=== PATIENT | female | born 1970 | race Caucasian/White ===

== ENCOUNTER 2017-02-17 19:09 | Emergency (ER) | payer MEDICAID ==
[~2017-02-17] VITALS: Ht 162.6 cm; Wt 44.0 kg
[~2017-02-17 19:09] MED LIST: ACET500C5 PO; CIPR500T4 PO
[2017-02-17 19:12] VITALS: Ht 162.6 cm; Wt 44.0 kg
[2017-02-17] MEDS ORDERED: SOD CHLORIDE 0.9% 1,000 ML IV STA (19:35)
--- NOTE | 2017-02-17 19:52 | ERD ---
ER Documentation Chief Complaint Date/Time DATE: 02/17/17 TIME: 19:40 Chief Complaint RLQ abd pain radaiting to back, left breast pain HPI 46-year-old female presents here in emergency department for complaints of right lower quadrant abdominal pain radiating to the back, sharp 6/10 scale, not better or worse with anything. Patient also is complaining of left upper back, pain, sharp throbbing pain 4/10 scale, not better or worse with anything. Patient denies any nipple discharge or redness. Patient denies any trauma and affected area. Patient did not take any medications for pain. Patient denies any fever or chills. Patient denies hematuria or dysuria. Patient denies any diarrhea or constipation. ROS All systems reviewed and are negative except as per history of present illness. Medications Home Meds Active Scripts Acetaminophen* (Tylophen*) 500 Mg Capsule, 1 CAP PO Q6H Y for PAIN AND OR ELEVATED TEMP, #20 CAP Prov:JABARI RAYMOND PA-C 05/30/15 Ciprofloxacin Hcl* (Ciprofloxacin Hcl*) 500 Mg Tablet, 500 MG PO BID for 10 Days , TAB Prov:CLAUDIA YOUNG PA-C 04/22/15 Allergies Allergies: Coded Allergies: No Known Allergy (Unverified , 02/17/17) PMhx/Soc Medical and Surgical Hx: pt denies Medical Hx History of Surgery: Yes (BREAST AUGMENTATION, RHINOPLASTY) Anesthesia Reaction: No Hx Neurological Disorder: No Hx Respiratory Disorders: No Hx Cardiac Disorders: No Hx Psychiatric Problems: No Hx Miscellaneous Medical Probl: No Hx Alcohol Use: No Hx Substance Use: No Hx Tobacco Use: No Smoking Status: Never smoker FmHx Family History: No coronary disease, No diabetes, No other Physical Exam Vitals Vital Signs Date Time Temp Pulse Resp B/P Pulse Ox O2 Delivery O2 Flow Rate FiO2 02/17/17 19:53 78 02/17/17 19:12 97.6 111 20 145/83 99 Physical Exam GENERAL: The patient is well developed and appropriate for usual state of health, in no apparent distress. CHEST: Clear to auscultation bilaterally. There are no rales, wheezes or rhonchi. No breast redness or deformity, no nipple discharge noted. Mild tenderness on palpation left mid chest and left upper back. HEART: Regular rate and rhythm. No murmurs, clicks, rubs or gallops. No S3 or S4. ABDOMEN: Soft, nontender and nondistended. Good bowel sounds. No rebound or guarding. No gross peritonitis. No gross organomegaly or masses. No Looney sign or McBurney point tenderness. BACK: No midline or flank tenderness. EXTREMITIES: Equal pulses bilaterally. There is no peripheral clubbing, cyanosis or edema. No focal swelling or erythema. Full range of motion. Grossly neurovascularly intact. NEURO: Alert and oriented. Cranial nerves 2-12 intact. Motor strength in all 4 extremities with 5/5 strength. Sensation grossly intact. Normal speech and gait. SKIN: There is no apparent rash or petechia. The skin is warm and dry. HEMATOLOGIC AND LYMPHATIC: There is no evidence of excessive bruising or lymphedema. No gross cervical, axillary, or inguinal lymphadenopathy. Result Diagram: 02/17/17 1950 02/17/17 1950 Results 24 hrs Laboratory Tests Test 02/17/17 19:50 White Blood Count 5.710^3/ul Red Blood Count 3.5010^6/ul Hemoglobin 11.4g/dl Hematocrit 33.1% Mean Corpuscular Volume 94.6fl Mean Corpuscular Hemoglobin 32.6pg Mean Corpuscular Hemoglobin Concent 34.4g/dl Red Cell Distribution Width 13.2% Platelet Count 71587^3/UL Mean Platelet Volume 10.6fl Neutrophils % 50.7% Lymphocytes % 38.5% Monocytes % 5.6% Eosinophils % 3.9% Basophils % 0.9% Nucleated Red Blood Cells % 0.0/100WBC Neutrophils # 2.910^3/ul Lymphocytes # 2.210^3/ul Monocytes # 0.310^3/ul Eosinophils # 0.210^3/ul Basophils # 0.110^3/ul Nucleated Red Blood Cells # 0.010^3/ul Urine Color STRAW Urine Clarity CLEAR Urine pH 6.0 Urine Specific Sargents 1.006 Urine Ketones NEGATIVEmg/dL Urine Nitrite NEGATIVEmg/dL Urine Bilirubin NEGATIVEmg/dL Urine Urobilinogen NEGATIVEmg/dL Urine Leukocyte Esterase NEGATIVELeu/ul Urine Microscopic RBC 1/HPF Urine Microscopic WBC 1/HPF Urine Hemoglobin 1+mg/dL Urine Glucose NEGATIVEmg/dL Urine Total Protein NEGATIVEmg/dl Sodium Level 142mmol/L Potassium Level 3.5mmol/L Chloride Level 100mmol/L Carbon Dioxide Level 27mmol/L Anion Gap 19 Blood Urea Nitrogen 15mg/dl Creatinine 0.82mg/dl Glucose Level 97mg/dl Calcium Level 9.3mg/dl Total Bilirubin 0.2mg/dl Direct Bilirubin 0.00mg/dl Indirect Bilirubin 0.2mg/dl Aspartate Amino Transf (AST/SGOT) 25IU/L Alanine Aminotransferase (ALT/SGPT) 31IU/L Alkaline Phosphatase 61IU/L Troponin I < 0.012ng/ml Total Protein 7.3g/dl Albumin 4.2g/dl Globulin 3.10g/dl Albumin/Globulin Ratio 1.35 Lipase 122U/L Current Medications Medications (Trade) Dose Ordered Sig/Ruth Route PRN Reason Start Time Stop Time Status Last Admin Dose Admin Sodium Chloride (NS) 1,000 ml @ 1,000 mls/hr Q1H STAT IV 02/17/17 19:35 02/17/17 20:34 DC 02/17/17 20:07 Morphine Sulfate (morphine) 4 mg ONCE STAT IV 02/17/17 21:53 02/17/17 21:54 DC 02/17/17 21:56 Ondansetron HCl (Zofran Inj) 4 mg ONCE STAT IV 02/17/17 21:53 02/17/17 21:54 DC 02/17/17 21:56 Normal saline IV bolus was given here in emergency department for rehydration, patient tolerated IV fluids. EKG was done, read by me and is normal sinus rhythm at a rate of 78, normal axis , there is no ST changes or changes in the EKG that indicates any cardiac emergencies at this time. Patient's EKG was also reviewed by Dr. Brown. Impression: no acute findings on EKG PROCEDURE: Chest x-ray CLINICAL INDICATION: Abdominal pain TECHNIQUE: Chest single view COMPARISON: None FINDINGS: The heart is normal in size. The pulmonary vessels are normal in caliber. The lungs are clear. The costophrenic angles are sharp. The visualized bony thorax is unremarkable. IMPRESSION: No acute cardiopulmonary disease. RPTAT: HH .Fredisashtyn Lombardo MD, MD Date Time Electronically viewed and signed by .Fredis Lombardo MD, MD on 02/17/2017 20:47 .W/ CC: BRAD MATIAS TRANSITION RN PROCEDURE: CT abdomen and pelvis without intravenous contrast. CLINICAL INDICATION: Right lower quadrant pain. TECHNIQUE: CT of the abdomen/pelvis was performed utilizing axial images with reconstructions in sagittal and coronal planes. The administered radiation dose is CTDI 6.8 mGy, DLP 305 mGy-cm. COMPARISON: No pertinent prior examinations were submitted for comparison. FINDINGS: Visualized Chest: The visualized lung bases are clear. Abdomen: The liver, spleen, pancreas, gallbladder,and adrenal glands are unremarkable. The kidneys are without hydronephrosis. No definite urinary calculi are seen. There is no evidence of bowel obstruction. The appendix is normal. No intra- abdominal free air is seen. There is no evidence of intra-abdominal adenopathy or free fluid. Pelvis: There is no evidence of pelvic adenopathy. The uterus and ovaries are without enlargement. The urinary bladder is unremarkable. There is no pelvic free fluid. Osseous structures: Unremarkable. IMPRESSION: No acute findings. Normal appendix. RPTAT: HIKT .Maulik Escobedo MD, MD Date Time Electronically viewed and signed by .Maulik Escobedo MD, on 02/17/2017 21:32 .T/ CC: BRAD MATIAS TRANSITION RN PROCEDURE: US Pelvis CLINICAL INDICATION: Pain. TECHNIQUE: Sonographic evaluation of the pelvis was performed utilizing transabdominal technique. Images were reviewed on the high-resolution PACS workstation. COMPARISON: CT pelvis 02/17/2070 FINDINGS: The uterus is normal in size, echogenicity, and morphology. The uterus is 7.7 x 4.4 x 6.7 cm. The endometrium is thin and normal measuring 3.1 mm in diameter. The right ovary measures 2.8 x 1.6 x 2.4 cm. The left ovary measures 3.1 x 1.9 x 2.2 cm. The ovaries are symmetric in size, echogenicity, and morphology. Color doppler vascular flow is demonstrated to both ovaries. There are no adnexal masses. There is no free fluid in the pelvis. IMPRESSION: 1. Unremarkable ultrasound of the pelvis. RPTAT: HMVK .Mundo Keene MD, MD Date Time Electronically viewed and signed by .Mundo Keene MD, MD on 02/17/2017 23:11 .K/ CC: BRAD MATIAS TRANSITION RN Procedures/MDM Medical Decision Making: Patient's pelvic pain / abdominal pain nonspecific at this time, probable musculoskeletal pain. Multiple radiology exams done does not show any abdominal emergencies. No symptoms of any ovarian torsion. No appendicitis. There is low suspicion for abdominal emergencies at this time. Patients abdominal exam is normal at this time. Patients radiology exam does not show any abdominal emergencies at this time. There is low suspicion for appendicitis, cholecystitis, abdominal aortic aneurysms or peritonitis at this time. There is low suspicion for sepsis. Patient appears well and is hemodynamically stable. Patient chest pain is specific at this time, possible musculoskeletal pain. There is low suspicion for cardiopulmonary emergencies at this time. Patient has low risk factors. EKG is normal, there is no changes in the EKG that indicates cardiac emergencies. Chest X-ray does not show cardiopulmonary emergencies at this time. There is low suspicion for aortic aneurysm, myocardial infarction, pneumothorax, pleural effusion, pulmonary embolism, or any other cardiopulmonary emergencies at this time. Cardiac markers are normal. Disposition: Home. Condition: Stable Prescription for tramadol, ibuprofen Instructions: Patient is advised to take medications as prescribed. Patient is advised to rest, increase fluid intake and do brat diet for next 1-2 days and progress as tolerated. Patient is advised that if symptoms are worse, severe abdominal pain, uncontrolled vomiting, high fever, severe flank pain, worst signs and symptoms, to return to the emergency department immediately. Otherwise, patient can follow up with primary care doctor in 5-7 days. Departure Diagnosis: Primary Impression: Abdominal pain Abdominal location: lower abdomen, unspecified Qualified Code: R10.30 - Lower abdominal pain Additional Impression: Atypical chest pain Condition: Stable Patient Instructions: Abdominal Pain, Chest Pain, Uncertain Cause Additional Instructions: Patient is advised to take medications as prescribed. Patient is advised to rest , increase fluid intake and do brat diet for next 1-2 days and progress as tolerated. Patient is advised that if symptoms are worse, severe abdominal pain , uncontrolled vomiting, high fever, severe flank pain, worst signs and symptoms , to return to the emergency department immediately. Otherwise, patient can follow up with primary care doctor in 5-7 days. BRAD MATIAS NP Feb 17, 2017 19:51
[2017-02-17 19:53] VITALS: PULSE 78
[2017-02-17 20:01] LABS: ADD SCAN DIFF NO
[2017-02-17 20:08] LABS: BASOPHIL # 0.1 10^3/ul (0.0-0.1); BASOPHILS % 0.9 % (0.0-2.0); EOSINOPHILS # 0.2 10^3/ul (0.0-0.5); EOSINOPHILS % 3.9 % (0.0-7.0); HEMATOCRIT 33.1 % (37.0-47.0); HEMOGLOBIN 11.4 g/dl (12.0-16.0); LYMPHOCYTES # 2.2 10^3/ul (0.8-2.9); LYMPHOCYTES % 38.5 % (15.0-51.0); MEAN CORPUSCULAR HEMOGLOBIN 32.6 pg (29.0-33.0); MEAN CORPUSCULAR HGB CONC 34.4 g/dl (32.0-37.0); MEAN CORPUSCULAR VOLUME 94.6 fl (82.0-101.0); MEAN PLATELET VOLUME 10.6 fl (7.4-10.4); MONOCYTE # 0.3 10^3/ul (0.3-0.9); MONOCYTES % 5.6 % (0.0-11.0); NEUTROPHIL # 2.9 10^3/ul (1.6-7.5); NEUTROPHILS % 50.7 % (39.0-77.0); PLATELET COUNT 210 10^3/UL (140-415); RED CELL DISTRIBUTION WIDTH 13.2 % (11.5-14.5); WHITE BLOOD COUNT 5.7 10^3/ul (4.8-10.8)
[2017-02-17 20:09] LABS: ADD UMIC YES; UR ASCORBIC ACID NEGATIVE (NEGATIVE); UR BILIRUBIN (Dip) NEGATIVE (NEGATIVE); UR BLOOD (Dip) 1+ mg/dL (NEGATIVE); UR CLARITY CLEAR (CLEAR); UR COLOR STRAW (YELLOW); UR GLUCOSE (Dip) NEGATIVE (NEGATIVE); UR KETONES (Dip) NEGATIVE (NEGATIVE); UR LEUKOCYTE ESTERASE (Dip) NEGATIVE Leu/ul (NEGATIVE); UR NITRITE (Dip) NEGATIVE (NEGATIVE); UR RBC 1 /HPF (0-5); UR SPECIFIC GRAVITY (Dip) 1.006 (1.003-1.030); UR TOTAL PROTEIN (Dip) NEGATIVE (NEGATIVE); UR UROBILINOGEN (Dip) NEGATIVE (NEGATIVE)
[2017-02-17 20:29] LABS: ALBUMIN 4.2 g/dl (3.3-4.9); ALBUMIN/GLOBULIN RATIO 1.35; BILIRUBIN,INDIRECT 0.2 mg/dl (0-1.1); BILIRUBIN,TOTAL 0.2 mg/dl (0.2-1.3); CALCIUM 9.3 mg/dl (8.4-10.2); CREATININE 0.82 mg/dl (0.44-1.00); POTASSIUM 3.5 mmol/L (3.5-5.1); TOTAL PROTEIN 7.3 g/dl (6.1-8.1)
--- NOTE | 2017-02-17 20:47 | RADRPT ---
PROCEDURE: Chest x-ray CLINICAL INDICATION: Abdominal pain TECHNIQUE: Chest single view COMPARISON: None FINDINGS: The heart is normal in size. The pulmonary vessels are normal in caliber. The lungs are clear. Th e costophrenic angles are sharp. The visualized bony thorax is unremarkable. IMPRESSION: No acute cardiopulmonary disease. RPTAT: HH .Fredis Lombardo MD, Date Time Electronically viewed and signed by .Fredis Lombardo MD, MD on 02/17/2017 20:47 .W/
--- NOTE | 2017-02-17 21:33 | RADRPT ---
PROCEDURE: CT abdomen and pelvis without intravenous contrast. CLINICAL INDICATION: Right lower quadrant pain. TECHNIQUE: CT of the abdomen/pelvis was performed utilizing axial images with reconstructions in s agittal and coronal planes. The administered radiation dose is CTDI 6.8 mGy, DLP 305 mGy-cm. COMPARISON: No pertinent prior examinations were submitted for comparison. FINDINGS: Visualized Chest: The visualized lung bases are clear. Abdomen: The liver, spleen, pancreas, gallbladder,and adrenal glands are unremarkable. The kidneys are without hydronephrosis. No definite urinary calculi are seen. There is no evidence of bowel obstruction. The appendix is normal. No intra-abdominal free air is seen. There is no evidence of intra-abdominal adenopathy or free fluid. Pelvis: There is no evidence of pelvic adenopathy. The uterus and ovaries are without enlargement. The uri nary bladder is unremarkable. There is no pelvic free fluid. Osseous structures: Unremarkable. IMPRESSION: No acute findings. Normal appendix. RPTAT: HIKT .Maulik Escobedo MD, MD Date Time Electronically viewed and signed by .Maulik Escobedo MD, on 02/17/2017 21:32 .T/
[2017-02-17] MEDS ORDERED: morphine 4 MG/ML VIAL IV STA (21:53)
[2017-02-17] MEDS ORDERED: ONDANSETRON 4 MG INJ IV STA (21:53)
--- NOTE | 2017-02-17 23:11 | RADRPT ---
PROCEDURE: US Pelvis CLINICAL INDICATION: Pain. TECHNIQUE: Sonographic evaluation of the pelvis was performed utilizing transabdominal technique. Images were reviewed on the high-resolution PACS workstation. COMPARISON: CT pelvis 02/17/2070 FINDINGS: The uterus is normal in size, echogenicity, and morphology. The uterus is 7.7 x 4.4 x 6.7 cm. The endometrium is thin and normal measuring 3.1 mm in diameter. The right ovary measures 2.8 x 1.6 x 2.4 cm. The left ovary measures 3.1 x 1.9 x 2.2 cm. The ovari es are symmetric in size, echogenicity, and morphology. Color doppler vascular flow is demonstrated to both ovaries. There are no adnexal masses. There is no free fluid in the pelvis. IMPRESSION: 1. Unremarkable ultrasound of the pelvis. RPTAT: HMVK .Mundo Keene MD, MD Date Time Electronically viewed and signed by .Mundo Keene MD, MD on 02/17/2017 23:11 .K/
[2017-02-17] MEDS ORDERED: IBUP-1542 PO (23:18)
[2017-02-17] MEDS ORDERED: TRAM50TA2 PO (23:18)
== END 2017-02-17 23:30 | disposition home or self-care (01) ==
LOC: FTE 19:09
DX: R10.31 Right lower quadrant pain (principal); R07.89 Other chest pain
CPT/HCPCS: 36415; 71010; 74176; 76856; 80053; 81001; 83690; 84484; 85025; 93005; 96374; 96375; J2270; J2405; J7030; Z7502

== ENCOUNTER 2019-02-14 15:36 | Emergency (ER) | payer MEDICAID ==
[~2019-02-14] VITALS: Ht 147.3 cm; Wt 44.9 kg
[~2019-02-14 15:36] MED LIST changes: +IBUP-1542 PO; +TRAM50TA2 PO
[2019-02-14 15:46] VITALS: Ht 147.3 cm; Wt 44.9 kg
[2019-02-14] MEDS ORDERED: IBUP-1542 PO (19:15)
[2019-02-14 19:45] VITALS: BP 135/67; PULSE 73; RESP 16
--- NOTE | 2019-02-15 09:37 | ERD ---
ER Documentation Chief Complaint Chief Complaint LEFT 1ST DIGIT INJURY HPI History of Present Illness: 48-year-old female who denies a past medical history coming in today due to complaint of injury to of left hand. Patient reports accidentally having her thumb closing the door while cleaning her home this morning. Patient denies any associated symptoms. Patient is able to bend and extend finger. At home pharmacological/nonpharmacological treatment for symptoms: Denies Denies social concerns; Denies recent foreign travel ROS All systems reviewed and are negative except as per history of present illness. Medications Home Meds Active Scripts Ibuprofen* (Motrin*) 600 Mg Tab, 600 MG PO Q6H PRN for PAIN AND OR ELEVATED TEMP, #30 TAB Prov:CHRISTINE FATIMA V OUTREACH REPRESENTATIVE 02/14/19 Ibuprofen* (Motrin*) 600 Mg Tab, 600 MG PO Q6H PRN for PAIN AND OR ELEVATED TEMP, #30 TAB Prov:BRAD MATIAS NP 02/17/17 Tramadol HCl (Tramadol HCl) 50 Mg Tablet, 50 MG PO Q6 PRN for SEVERE PAIN LEVEL 7-10, #20 TAB Prov:BRAD MATIAS OUTREACH REPRESENTATIVE 02/17/17 Acetaminophen* (Tylophen*) 500 Mg Capsule, 1 CAP PO Q6H PRN for PAIN AND OR ELEVATED TEMP, #20 CAP Prov:JABARI RAYMOND PA-C 05/30/15 Ciprofloxacin Hcl* (Ciprofloxacin Hcl*) 500 Mg Tablet, 500 MG PO BID for 10 Days, TAB Prov:CLAUDIA YOUNG PA-C 04/22/15 Allergies Allergies: Coded Allergies: No Known Allergy (Unverified , 02/17/17) PMhx/Soc History of Surgery: Yes (BREAST AUGMENTATION, RHINOPLASTY) Anesthesia Reaction: No Hx Neurological Disorder: No Hx Respiratory Disorders: No Hx Cardiac Disorders: No Hx Psychiatric Problems: No Hx Miscellaneous Medical Probl: No Hx Alcohol Use: No Hx Substance Use: No Hx Tobacco Use: No Smoking Status: Never smoker FmHx Family History: No coronary disease Physical Exam Vitals Vital Signs Date Temp Pulse Resp B/P (MAP) Pulse Ox O2 O2 Flow FiO2 Time Delivery Rate 02/14/19 97.7 73 16 135/67 100 Room Air 19:45 (89) 02/14/19 98.7 81 17 120/75 99 15:46 (90) Physical Exam Const: No acute distress, afebrile Head: Atraumatic Eyes: Normal Conjunctiva ENT: Normal External Ears, Nose and Mouth. Neck: Full range of motion. No meningismus. Resp: Clear to auscultation bilaterally Cardio: Regular rate and rhythm, no murmurs Abd: Soft, non tender, non distended. No guarding, no masses, no rigidity Skin: No petechiae or rashes Back: No midline or flank tenderness Ext: No cyanosis, or edema; left upper extremity: Tenderness to palpation to first digit, ecchymosis noted, mild swelling noted, neurovascular intact Neur: Awake and alert x3, speaking in clear sentences, no focal deficits or facial asymmetry Psych: Normal Mood and Affect Results 24 hrs Laboratory Tests Test 02/14/19 18:13 POC Beta HCG, Qualitative NEGATIVE Procedures/MDM ED COURSE: ED course includes a thorough examination and history. The patient was stable throughout ED course. I kept the patient and/or family informed of laboratory and diagnostic imaging results throughout the ED course. LABS: Urine negative MEDICATIONS GIVEN IN ER: Patient declined need for pain medication at this time. DIAGNOSTIC IMAGING: IMPRESSION: 1. Linear lucency projecting at the distal tuft of the first digit on AP view, which may reflect a prominent trabeculation, although a nondisplaced fracture is also possible 2. Punctate debris or calcification which may be along the skin surface or just deep to the skin surface, palmar relative to the first digit interphalangeal joint. RPTAT: DD .Kirk Baltazar MD, MD Date Time Electronically viewed and signed by .Kirk Baltazar MD, on 02/14/2019 19:04 PROCEDURES: None. MEDICAL DECISION MAKING: Low suspicion for life-threatening medical emergency. Otherwise healthy patient presenting with constellation of symptoms likely representing possible distal tuft fracture as characterized by history, physical exam findings, radiology findings. Patient reassessment @ 1910: Results discussed. Orders placed for splint application. Strict follow-up to rule out pathologic findings. Patient hemodynamically stable. No respiratory distress, otherwise relatively well appearing and nontoxic. Disposition given. Patient educated on diagnoses, prescriptions, follow-up care, return precautions. Strict return precautions given for worsening condition; questions answered discharge. Patient verbalizes understanding of discharge instructions. PRESCRIPTIONS FOR HOME: Ibuprofen DISPOSITION: DISCHARGE At this time, patient is stable for discharge and outpatient management. I have instructed the patient to follow-up with his/her primary care physician in 1-2 days. I have discussed with the patient the possibility of needing to see a specialist for further workup and imaging studies if symptoms persist. I have instructed the patient to promptly return to the ER for any new or worsening symptoms including increased pain, fever, nausea, vomiting, weakness or LOC. The patient and/or family expressed understanding of and agreement with this plan. All questions were answered. Home care instructions were provided. DISCLAIMER: Inadvertent spelling and grammatical errors are likely due to EHR/dictation software use and do not reflect on the overall quality of patient care. Also, please note that the electronic time recorded on this note does not necessarily reflect the actual time of the patient encounter. Departure Diagnosis: Primary Impression: Finger injury Condition: Stable Patient Instructions: Crush Injury, Hand/Finger Referrals: [facility] Usted se duron hecho un examen mdico de control que le indica que no est en abe condicin que requiera tratamiento urgente en el Departamento de Emergencia. Un estudio ms profundo y el tratamiento de sage condicin pueden esperar sin ningn riesgo hasta que usted sea atendida/o en el consultorio de sage mdico o abe clnica. Es responsabilidad suya arreglar abe farooq para el seguimiento del micaela. MANEJO DE CONDICIONES NO URGENTES EN EL FUTURO 1) Si usted tiene un mdico de atencin primaria: Usted debera llamar a sage mdico de atencin primaria antes de venir al departamento de emergencia. Despus de las horas de consultorio, sage doctor o sage asociado/a est disponible por telfono. El mdico o enfermero de nena en el servicio telefnico puede asesorarle por rosemary medio para atender el problema, o micaela contrario se puede programar abe farooq. 2) Si usted no tiene un mdico de atencin primaria: Llame al mdico o clnica de referencia que aparece abajo ti las horas de consultorio para hacer abe farooq para que le vean. CLINICAS: [facility] [phone] [facility] [phone] [facility] [phone] [address] [facility] [place] [id number] [phone] [facility] [facility] [place] [address] [phone] [facility]. [phone] [address] [facility]. [facility] () Usted se duron hecho un examen mdico de control que le indica que no est en abe condicin que requiera tratamiento urgente en el Departamento de Emergencia. Un estudio ms profundo y el tratamiento de sage condicin pueden esperar sin ningn riesgo hasta que usted sea atendida/o en el consultorio de sage mdico o abe clnica. Es responsabilidad suya arreglar abe farooq para el seguimiento del micaela. MANEJO DE CONDICIONES NO URGENTES EN EL FUTURO 1) Si usted tiene un mdico de atencin primaria: Usted debera llamar a sage mdico de atencin primaria antes de venir al departamento de emergencia. Despus de las horas de consultorio, sage doctor o sage asociado/a est disponible por telfono. El mdico o enfermero de nena en el servicio telefnico puede asesorarle por rosemary medio para atender el problema, o micaela contrario se puede programar abe farooq. 2) Si usted no tiene un mdico de atencin primaria: Llame al mdico o condado institucions de referencia que aparece abajo ti las horas de consultorio para hacer abe farooq para que le vean. SI USTED NO PUEDE PAGAR PARA CAESAR UN MEDICO puede ir a: [facility] [address] [place] [address] [facility] [address] [place] [address] [facility] [address] [place] [address] [facility] [address] [place], [place] [id number] Additional Instructions: Google Translate utilizado para la traduccin de las siguientes lneas, por favor, disculpe los errores. Muchas john por permitirnos participar en sage cuidado. Sage kathie y seguridad es nuestra principal prioridad en [facility]. Es importante leer todas las instrucciones de beth y la educacin que se proporcionan en sage paquete de beth. Llame a sage mdico de atencin primaria MAANA para abe farooq ti los prximos 2 a 4 stark y lleve toda la informacin y los medicamentos recetados. Llene las recetas y siga exactamente las instrucciones de la etiqueta. Si los sntomas empeoran y sage proveedor no est disponible, regrese inmediatamente al Departamento de Emergencias. ----- Google Translate used for translation of following lines, please excuse errors. Thank you very much for allowing us to participate in your care. Your health and safety is our top priority at [facility]. It is important to read all discharge instructions and education provided in your discharge packet. Call your primary care doctor TOMORROW for an appointment during the next 2-4 days and bring all the information and medications prescribed. Have prescriptions filled and follow precisely the directions on the label. If the symptoms get worse and your provider is unavailable, return to the Emergency Department immediately. CHRISTINE FATIMA NP Feb 15, 2019 09:36
== END 2019-02-14 19:46 | disposition home or self-care (01) ==
LOC: FTE 15:36
DX: S60.012A Contusion of left thumb without damage to nail, initial encounter (principal); W23.0XXA Caught, crushed, jammed, or pinched between moving objects, initial encounter; Y92.009 Unspecified place in unspecified non-institutional (private) residence as the place of occurrence of the external cause
CPT/HCPCS: 73140; 81025